=== PATIENT | female | born 1980 | race Caucasian/White ===

== ENCOUNTER 2017-09-08 13:50 | Emergency (ER) | payer OTHER ==
[~2017-09-08] VITALS: Ht 177.8 cm; Wt 61.5 kg
[~2017-09-08 13:50] MED LIST: ACET325T11 PO; ASPI325T PO; ENOX40P SQ; LABE100T2 PO; PREN0.01 PO
[2017-09-08 13:58] VITALS: BP 162/97; PULSE 74; RESP 16; TEMP 98.2; O2SAT 100
[2017-09-08] MEDS ORDERED: SODIUM CHLORIDE 0.9% FLUSH 10 ML FLUSH IVF PRN (14:00)
[2017-09-08 14:05] VITALS: O2SAT 98
--- NOTE | 2017-09-08 14:06 | PD ---
HPI Chief Complaint: syncope Time Seen by Provider: 13:54 Travel History International Travel<30 days: No Contact w/Intl Traveler<30days: No History of Present Illness HPI 37 y/o female presents with a witnessed syncopal episode today at work. Earlier this morning her blood pressure which she normally checks was elevated with a systolic in the 200s. She took her carvedilol this morning like she usually does and shortly after this is when she had the event. She states before the event she felt like her pressure was high and actually now feels better. She denies any current complaints at this time. She states she's been having a lot of issues getting her blood pressure under appropriate control. She states that that is why she checks her pressure to figure out what medications will work with her. She states in the past Norvasc and hydralazine made her feel really bad and one of them she had a syncopal event on. She states no modifying factors. PFSH Past Medical History Arthritis: Yes (HX OF FLOYD) Autoimmune Disease: Yes (LUPUS) Blood Disorders: Yes (HX OF ITP) Heart Rhythm Problems: No Cancer: No Cardiovascular Problems: Yes High Cholesterol: No Chest Pain: Yes Congestive Heart Failure: No Cerebrovascular Accident: Yes (TIA IN 2009) Endocrine: No Genitourinary: Yes (DECREASED KIDNEY FUNCTION) Hypertension: Yes Immune Disorder: Yes (WEAK IMMUNITY DEFENSE) Musculoskeletal: Yes Neurologic: No Psychiatric: No Reproductive: No Respiratory: No Myocardial Infarction: No Past Surgical History AICD: No Arteriovenous Shunt: No Ear Surgery: No Endocrine Surgery: No Eye Surgery: No Genitourinary Surgery: No Gynecologic Surgery: No Insulin Pump: No Joint Replacement: No Oral Surgery: No Pacemaker: No Social History Alcohol Use: No (NONE) Tobacco Use: No Substance Use: No Allergies-Medications (Allergen,Severity, Reaction): Coded Allergies: cephalexin (Unverified Allergy, Severe, 05/05/17) codeine (Unverified Allergy, Severe, 05/05/17) hydralazine (Unverified Allergy, Severe, 05/05/17) Reported Meds & Prescriptions Reported Meds & Active Scripts Active Reported Tylenol 325 Mg Tab (Acetaminophen) 325 Mg Tab 650 Mg PO Q4 PRN Vit ( Plus) (Prenat Multivit/Electromechanical Equipment Tester/Iron/Folic Ac) Tab 1 Tab PO DAILY Lovenox (Enoxaparin Sodium) 40 Mg/0.4 Ml Inj 40 Mg SQ DAILY UNGRADUATED PREFILLED SYRINGE Aspirin 325 Mg Tab (Aspirin) 325 Mg Tab 325 Mg PO DAILY Trandate (Labetalol HCl) 100 Mg Tab 100 Mg PO DAILY Review of Systems Except as stated in HPI: all other systems reviewed are Neg Physical Exam Narrative GENERAL: Well-nourished, well-developed patient. SKIN: Warm and dry. HEAD: Normocephalic and atraumatic. EYES: No injection or drainage. ENT: No nasal drainage noted. NECK: Supple, trachea midline. CARDIOVASCULAR: Regular rate and rhythm RESPIRATORY: Breath sounds equal bilaterally. No accessory muscle use. GASTROINTESTINAL: Abdomen soft, non-tender, nondistended. EXTREMITIES: No edema. NEUROLOGICAL: Awake and alert. Motor and sensory grossly within normal limits. Normal speech. Equal grasp bilaterally, 5 out of 5 in all 4 extremities Data Data Last Documented VS Vital Signs Date Time Temp Pulse Resp B/P (MAP) Pulse Ox O2 Delivery O2 Flow Rate FiO2 09/08/17 15:36 72 16 148/93 (111) 100 Room Air 09/08/17 13:58 98.2 Orders Orders Electrocardiogram (09/08/17 13:54) Ed Urine Pregnancytest Poc (09/08/17 13:54) Complete Blood Count With Diff (09/08/17 13:54) Comprehensive Metabolic Panel (09/08/17 13:54) Ckmb (Isoenzyme) Profile (09/08/17 13:54) Troponin I (09/08/17 13:54) Act Partial Throm Time (Ptt) (09/08/17 13:54) Prothrombin Time / Inr (Pt) (09/08/17 13:54) Urinalysis - C+S If Indicated (09/08/17 13:54) Chest, Single Ap (09/08/17 13:54) Ecg Monitoring (09/08/17 13:54) Iv Access Insert/Monitor (09/08/17 13:54) Oximetry (09/08/17 13:54) Sodium Chloride 0.9% Flush (Ns Flush) (09/08/17 14:00) Ed Discharge Order (09/08/17 16:23) Labs Laboratory Tests Test 09/08/17 14:15 09/08/17 15:15 Prothrombin Time 12.0 SEC Prothromb Time International Ratio 1.2 RATIO Activated Partial Thromboplast Time 36.5 SEC Urine Collection Type CLEAN CATCH Urine Color STRAW Urine Turbidity CLEAR Urine pH 6.0 Urine Specific [place] 1.004 Urine Protein NEG mg/dL Urine Glucose (UA) NEG mg/dL Urine Ketones NEG mg/dL Urine Occult Blood NEG Urine Nitrite NEG Urine Bilirubin NEG Urine Leukocyte Esterase NEG Urine RBC 0-3 /hpf Urine Squamous Epithelial Cells 0-5 /hpf Microscopic Urinalysis Comment CULT NOT INDICATED Urine Collection Time 14:15 Blood Urea Nitrogen 18 MG/DL Creatinine 1.30 MG/DL Random Glucose 75 MG/DL Total Protein 7.3 GM/DL Albumin 3.5 GM/DL Calcium Level 8.1 MG/DL Alkaline Phosphatase 42 U/L Aspartate Amino Transf (AST/SGOT) 22 U/L Alanine Aminotransferase (ALT/SGPT) 21 U/L Total Bilirubin 1.0 MG/DL Sodium Level 136 MEQ/L Potassium Level 4.2 MEQ/L Chloride Level 104 MEQ/L Carbon Dioxide Level 25.0 MEQ/L Anion Gap 7 MEQ/L Estimat Glomerular Filtration Rate 47 ML/MIN Total Creatine Kinase 81 U/L Troponin I LESS THAN 0.02 NG/ML White Blood Count 3.6 TH/MM3 Red Blood Count 4.50 MIL/MM3 Hemoglobin 12.5 GM/DL Hematocrit 39.6 % Mean Corpuscular Volume 88.1 FL Mean Corpuscular Hemoglobin 27.9 PG Mean Corpuscular Hemoglobin Concent 31.6 % Red Cell Distribution Width 12.6 % Platelet Count 153 TH/MM3 Mean Platelet Volume 9.3 FL Neutrophils (%) (Auto) 70.7 % Lymphocytes (%) (Auto) 21.0 % Monocytes (%) (Auto) 6.5 % Eosinophils (%) (Auto) 0.4 % Basophils (%) (Auto) 1.4 % Neutrophils # (Auto) 2.7 TH/MM3 Lymphocytes # (Auto) 0.7 TH/MM3 Monocytes # (Auto) 0.2 TH/MM3 Eosinophils # (Auto) 0.0 TH/MM3 Basophils # (Auto) 0.0 TH/MM3 CBC Comment DIFF FINAL Differential Comment MDM Medical Decision Making Medical Screen Exam Complete: Yes Emergency Medical Condition: Yes Medical Record Reviewed: Yes ([facility] confirmed) Interpretation(s) EKG shows NSR, no ST elevation or depression, and no arrhythmias. No significant T-wave inversions. CBC & BMP Diagram 09/08/17 14:15 Total Protein 7.3, Albumin 3.5, Calcium Level 8.1 L, Alkaline Phosphatase 42 L, Aspartate Amino Transf (AST/SGOT) 22, Alanine Aminotransferase (ALT/SGPT) 21, Total Bilirubin 1.0 09/08/17 15:15 Last 24 hours Impressions Chest X-Ray 09/08/17 1354 Signed Impressions: Service Date/Time: Friday, September 08, 2017 14:13 - CONCLUSION: Normal examination. Gato Calderon MD Differential Diagnosis Anemia, vasovagal, atypical cardiac Narrative Course Will check blood work, chest x-ray, EKG and monitor ED workup shows mild increase in baseline creatinine, patient offered observation but wanting to go home, will discuss with her primary Patient denies any new complaints, all questions answered. Patient knows that follow up is incumbent on them and to return to the emergency room immediately if new or worsening symptoms develop. Patient given strict return precautions, vitals reviewed and are normal, agrees to further workup as an outpatient. Physician Communication Physician Communication dr zhang states patient can go home, to take an extra half dose of her carvedilol tonight and call for follow up tommorrow, take her Plaquenil Diagnosis Primary Impression: Syncope Qualified Codes: R55 - Syncope and collapse Patient Instructions: General Instructions Additional Instructions: take one half of your carvedilol tonight if her blood pressure remains elevated when you go home and check it, call Dr. Zhang for follow-up tomorrow, keep blood pressure log, return as needed, take your Plaquenil Med/Other Pt SpecificInfo: Existing Med Changed Disposition: DISCHARGE HOME Condition: Stable Theresa Palafox MD Sep 08, 2017 14:06
[2017-09-08 14:22] LABS: BILIRUBIN, URINE NEG (NEG); BLOOD, URINE NEG (NEG); GLUCOSE,URINE NEG (NEG); KETONE, URINE NEG (NEG); NITRITE,URINE NEG (NEG); URINE LEUKOCYTE ESTERASE NEG (NEG)
[2017-09-08 14:34] LABS: CHLORIDE 104 MEQ/L (98-107); SODIUM (NA) 136 MEQ/L (136-145)
[2017-09-08 14:36] LABS: INTERNATIONAL NORMALIZED RATIO 1.2 RATIO
[2017-09-08 14:37] LABS: ALBUMIN 3.5 GM/DL (3.4-5.0); BLOOD UREA NITROGEN 18 MG/DL (7-18); CALCIUM 8.1 MG/DL (8.5-10.1); GLUCOSE,RANDOM 75 MG/DL (74-106)
[2017-09-08 14:39] LABS: RBC, URINE 0-3 /hpf (0-3); SQUAMOUS EPITHELIAL CELL URINE 0-5 /hpf (0-5); URINE COLOR STRAW (YELLW/STRAW)
[2017-09-08 14:40] LABS: ALT (GPT) 21 U/L (10-53); AST (GOT) 22 U/L (15-37); GLOMERULAR FILTRATION RATE 47 ML/MIN (>89)
--- NOTE | 2017-09-08 14:40 | RADRPT ---
EXAM DATE/TIME: 09/08/2017 14:13 [facility] COMPARISON: No previous studies available for comparison. INDICATIONS : Syncopal episode today. MEDICAL HISTORY : Hypertension. SURGICAL HISTORY : None. ENCOUNTER: Initial ACUITY: 1 day PAIN SCORE: 0/10 LOCATION: Bilateral chest FINDINGS: A single view of the chest demonstrates the lungs to be symmetrically aerated without evidence of mas s, infiltrate or effusion. The cardiomediastinal contours are unremarkable. Osseous structures are intact. CONCLUSION: Normal examination. Gato Calderon MD on September 08, 2017 at 14:37 Board Certified Radiologist. This report was verified electronically.
[2017-09-08 14:42] LABS: TOTAL PROTEIN 7.3 GM/DL (6.4-8.2)
[2017-09-08 14:43] LABS: ALKALINE PHOSPHATASE 42 U/L (45-117)
[2017-09-08 14:45] LABS: TROPONIN I LESS THAN 0.02 NG/ML (0.02-0.05)
[2017-09-08 15:22] LABS: AUTOMATED NEUTROPHIL # 2.7 TH/MM3 (1.8-7.7); BASOPHIL % 1.4 % (0.0-2.0); EOSINOPHIL % 0.4 % (0.0-4.0); HEMATOCRIT 39.6 % (35.0-46.0); HEMOGLOBIN 12.5 GM/DL (11.6-15.3); LYMPHOCYTE # 0.7 TH/MM3 (1.0-4.8); MEAN CELL VOLUME 88.1 FL (80.0-100.0); MEAN CORPUSCULAR HEMOGLOBIN 27.9 PG (27.0-34.0); MEAN CORPUSCULAR HGB CONC 31.6 % (32.0-36.0); MEAN PLATELET VOLUME 9.3 FL (7.0-11.0); MONO % 6.5 % (0.0-8.0); MONOCYTE # 0.2 TH/MM3 (0-0.9); NEUT % 70.7 % (16.0-70.0); PLATELET COUNT 153 TH/MM3 (150-450); RED CELL DISTRIBUTION WIDTH 12.6 % (11.6-17.2); WHITE BLOOD COUNT 3.6 TH/MM3 (4.0-11.0)
[2017-09-08 15:36] VITALS: BP 148/93; PULSE 72; RESP 16; O2SAT 100
--- NOTE | 2017-09-08 16:18 | EKG ---
Date Performed: 09/08/2017 Time Performed: 14:05:21 PTAGE: 37 years EKG: Sinus rhythm NORMAL ECG Compared to prior electrocardiogram, rate has decreased and Nonspecific T wave changes no longer present. PREVIOUS TRACING : 09/02/2012 18.28 DOCTOR: Jose Holland Interpretating Date/Time 09/08/2017 16:19:54
== END 2017-09-08 16:45 | disposition home or self-care (01) ==
LOC: PHED 13:50
DX: R55 Syncope and collapse (principal); I10 Essential (primary) hypertension; M32.9 Systemic lupus erythematosus, unspecified; Z86.73 Personal history of transient ischemic attack (TIA), and cerebral infarction without residual deficits
CPT/HCPCS: 71010; 80053; 81001; 82550; 84484; 84703; 85025; 85610; 85730; 93005

== ENCOUNTER 2018-11-06 15:02 | Inpatient (IN) ==
[2018-11-06] MEDS ORDERED: Sod Chloride 0.9% Inj 1,000 ML IV.CONT SCH (15:15)
--- NOTE | 2018-11-06 15:31 | CT ---
EXAM DATE: 11/06/2018 3:26 PM EST AGE/SEX: 38 years / Female INDICATIONS: Stroke alert, aphasia. CLINICAL DATA: This is the patient's initial encounter. Patient reports that signs and symptoms have been present for 1 day and indicates a pain score of Nonresponsive. MEDICAL/SURGICAL HISTORY: Non-responsive. Non-responsive. RADIATION DOSE: 34.16 CTDI (mGy) COMPARISON: [facility], CT BRAIN W/O CONTRAST, 08/27/2012. . TECHNIQUE: CT of the head without contrast. Using automated exposure control and adjustment of the mA and/or kV according to patient size, radiation dose was kept as low as reasonably achievable to ob tain optimal diagnostic quality images. DICOM format image data is available electronically for revi ew and comparison. FINDINGS: Cerebrum: The ventricles are normal for age. No evidence of midline shift, mass lesion, hemorrhage or acute infarction. No extraaxial fluid collections are seen. Posterior Fossa: The cerebellum and brainstem are intact. The 4th ventricle is midline. The cerebe llopontine angle is unremarkable. Extracranial: The visualized portion of the orbits is intact. Skull: The calvaria is intact. No evidence of skull fracture. CONCLUSION: 1. No acute intracranial abnormality Report was called by Dickson to [facility]. Electronically signed by: Evin Forman MD Board Certified Radiologist 11/06/2018 3:30 PM EST
--- NOTE | 2018-11-06 15:48 | CT ---
EXAM DATE: 11/06/2018 3:42 PM EST AGE/SEX: 38 years / Female INDICATIONS: Stroke alert, aphasia. CLINICAL DATA: This is the patient's initial encounter. Patient reports that signs and symptoms have been present for 1 day and indicates a pain score of Nonresponsive. MEDICAL/SURGICAL HISTORY: Non-responsive. Non-responsive. RADIATION DOSE: 27.55 CTDI (mGy) ; Combined studies COMPARISON: [facility], CTA STROKE ALERT NECK W CONTRAST W 3D, 11/06/2018. . TECHNIQUE: Volumetric scanning was performed using a multi-row detector CT scanner during bolus infu chad of 100 ml Visipaque 320 (iodixanol) nonionic water-soluble contrast as a cumulative dose for mu ltiple exams. The data was post processed with a variety of visualization algorithms including full volume maximum intensity projection, multi-planar sliding thin slab reformation, curved planar refor mation, and surface rendering techniques. Using automated exposure control and adjustment of the mA and/or kV according to patient size, radiation dose was kept as low as reasonably achievable to obtai n optimal diagnostic quality images. DICOM format image data is available electronically for review and comparison. FINDINGS: There is excellent visualization of the major intracranial arteries out to the second-order branch ve ssels. There is no evidence for aneurysm, vessel truncation or stenosis, and no evidence for vascula r malformation. Dominant left vertebral artery. Small anterior communicating artery. Posterior commun icating arteries are not seen. CONCLUSION: 1. No large vessel stenosis or aneurysm. Report was called by Dickson to [facility]. Electronically signed by: Evin Forman MD Board Certified Radiologist 11/06/2018 3:47 PM EST
--- NOTE | 2018-11-06 15:49 | CT ---
EXAM DATE: 11/06/2018 3:43 PM EST AGE/SEX: 38 years / Female INDICATIONS: Stroke alert, aphasia. CLINICAL DATA: This is the patient's initial encounter. Patient reports that signs and symptoms have been present for 1 day and indicates a pain score of Nonresponsive. MEDICAL/SURGICAL HISTORY: Non-responsive. Non-responsive. RADIATION DOSE: 27.55 CTDI (mGy) ; Combined studies COMPARISON: No prior exams available for comparison. TECHNIQUE: Volumetric scanning was performed using a multirow detector CT scanner during bolus infus ion of 100 ml Visipaque 320 (iodixanol) nonionic water-soluble contrast as a cumulative dose for mul tiple exams. The data was postprocessed with a variety of visualization algorithms including full-v olume maximum intensity projection, multiplanar sliding thin-slab reformation, curved-planar reformat ion, and surface-rendering techniques. Using automated exposure control and adjustment of the mA and /or kV according to patient size, radiation dose was kept as low as reasonably achievable to obtain o ptimal diagnostic quality images. DICOM format image data is available electronically for review and comparison. Percent stenosis is calculated using the diameter of the stenotic region over the diameter of the nor mal distal internal carotid artery. FINDINGS: Aortic Arch: There is a three-vessel origin of the great vessels from the aorta. No evidence of ost ial narrowing Right Carotid: The common carotid artery is intact. The carotid bulb has a normal configuration wit hout ulceration or narrowing. The internal carotid artery lumen is smooth without stenosis. The ext ernal carotid artery is intact. Left Carotid: The common carotid artery is intact. The carotid bulb has a normal configuration with out ulceration or narrowing. The internal carotid artery lumen is smooth without stenosis. The exte rnal carotid artery is intact. Vertebrals: The vertebral arteries have a symmetric diameter. No stenotic lesions are seen. CONCLUSION: 1. Negative CTA Carotid. Report was called by Dickson to [facility]. Electronically signed by: Evin Forman MD Board Certified Radiologist 11/06/2018 3:48 PM EST
[2018-11-06 15:50] LABS: Baso % (Auto) 0.4 % (0.0-2.0); Eos % (Auto) 0.1 % (0.0-4.0); Hematocrit 42.9 % (35.0-46.0); Hemoglobin 14.4 gm/dL (11.6-15.3); Lymph # (Auto) 0.7 th/mm3 (1.0-4.8); Lymph % (Auto) 9.8 % (9.0-44.0); Mean Corpuscular HGB Conc 33.6 % (32.0-36.0); Mean Corpuscular Hemoglobin 29.3 pg (27.0-34.0); Mean Corpuscular Volume 87.2 fL (80.0-100.0); Mean Platelet Volume 8.9 fL (7.0-11.0); Mono # (Auto) 0.3 th/mm3 (0.0-0.9); Mono % (Auto) 3.8 % (0.0-8.0); Neut # (Auto) 5.8 th/mm3 (1.8-7.7); Neut % (Auto) 85.9 % (16.0-70.0); Platelet Count 244 th/mm3 (150-450); Red Blood Count 4.92 mil/mm3 (4.00-5.30); Red Cell Distribution Width 13.3 % (11.6-17.2); White Blood Count 6.7 th/mm3 (4.0-11.0)
[2018-11-06] MEDS ORDERED: SODIUM CHLOR 0.9% IV.SIG ONE (15:57)
[2018-11-06] MEDS ORDERED: ACYCLOVIR IV.SIG ONE (15:57)
[2018-11-06] MEDS ORDERED: Vancomycin Inj 1,000 MG in Sodium Chlor 0.9% Inj 250 ML IV.SIG STA (15:57)
[2018-11-06 16:00] LABS: Activated Partial Thrombo Time 42.9 sec (23.4-31.7); INR 1.2 Ratio; Prothrombin Time 11.9 sec (9.8-11.6)
[2018-11-06 16:09] LABS: Creatine Kinase 36 U/L (26-192)
[2018-11-06] MEDS ORDERED: Sod Chloride 0.9% Inj 1,000 ML IV.SIG SCH (16:15)
--- NOTE | 2018-11-06 16:45 | MR ---
EXAM DATE: 11/06/2018 4:38 PM EST AGE/SEX: 38 years / Female INDICATIONS: Aphasia. CLINICAL DATA: This is the patient's initial encounter. Patient reports that signs and symptoms have been present for 1 day and indicates a pain score of 0/10. MEDICAL/SURGICAL HISTORY: Lupus. None. COMPARISON: [facility], MRI BRAIN W & W/O CONTRAST, 08/28/2012. . TECHNIQUE: Multiplanar, multisequence examination of the brain was performed without contrast. FINDINGS: Cerebrum: The ventricles are normal for age. No evidence of midline shift, mass lesion, hemorrhage or acute infarction. No extraaxial fluid collections are seen. The pituitary gland and suprasellar cistern are normal in configuration. White Matter: No significant signal abnormalities are seen in the white matter. Posterior Fossa: The cerebellum and brainstem are intact. The 4th ventricle is midline. The cerebel lopontine angle is unremarkable. The cerebellar tonsils are normal in position. Diffusion Imaging: No focal areas of restricted diffusion are seen. No evidence of acute infarction . Extracranial: The visualized portions of the orbits and paranasal sinuses are unremarkable. CONCLUSION: 1. Unremarkable MRI of the brain. 2. No acute infarction. Electronically signed by: Evin Forman MD Board Certified Radiologist 11/06/2018 4:43 PM EST
[2018-11-06 16:46] LABS: Bilirubin,Urine Negative (Negative); Clarity,Urine Clear (Clear); Color,Urine Yellow (Yellw/Straw); Glucose,Urine (UA) Negative (Negative); Leukocyte Esterase,Urine Negative (Negative); Mucus,Urine Few /lpf (Occasional); Nitrite,Urine Negative (Negative); Specific Gravity,Urine 1.013 (1.002-1.035)
[2018-11-06 16:53] LABS: Amphetamine Screen,Urine Neg (Neg); Barbiturate Screen,Urine Neg (Neg); Cannabinoid Screen,Urine Neg (Neg); Cocaine Screen,Urine Neg (Neg); Opiate Screen,Urine Neg (Neg)
[2018-11-06] MEDS ORDERED: Vancomycin Inj 1,000 MG in Sodium Chlor 0.9% Inj 250 ML IV.SIG ONE (17:00)
--- NOTE | 2018-11-06 17:38 | ED ---
HPI General Chief complaint: Stroke Alert Stated complaint: Stroke Alert Time Seen by Provider: 11/06/18 15:07 Source: family Mode of arrival: EMS Limitations: no limitations History of Present Illness HPI narrative: This is a 38-year-old female who presents to the emergency department with altered mental status. She reportedly had been not feeling well this morning and had a fever of 103. Her neighbor was tending to her and picked up her antiviral medication and was giving her Tylenol. Her neighbor started to care for her around noon and at 130 she noticed a distinct change in her mental status. The patient became more somnolent, was not responding and was having difficulty speaking, constant, severe. Her neighbor called 911. Here in the emergency department the patient is unable to provide any history. She reportedly has a history of lupus and a stroke. Related Data Home Medications Medication Instructions Recorded Confirmed Unable to Obtain Home Meds 11/06/18 11/06/18 Allergies Allergy/AdvReac Type Severity Reaction Status Date / Time cephalexin Allergy Severe Hives Verified 11/06/18 15:19 codeine Allergy Severe Hives Verified 11/06/18 15:19 hydralazine Allergy Severe Hives Verified 11/06/18 15:19 ampicillin Allergy Rash Verified 11/06/18 16:27 Review of Systems ROS Unobtainable ROS Unobtainable: unobtainable due to mental condition [facility] Medical History Medical History Hypertension (Acute) Lupus (Acute) Surgical history unknown (Acute) TIA (transient ischemic attack) (Acute) Social History Social History Substance History: Unable to Obtain Smoking Status: Unknown if ever smoked How Often Do You Have a Drink Containing Alcohol: Unable to Obtain Recent Travel in [facility] within the Last 8 Weeks: No Recent Out of Country Travel within the Last 8 Weeks: No Immunization History Tetanus Immunization: Unable to Assess Exam Narrative Exam Narrative: GENERAL: Unwell appearing SKIN: Dry with skin tenting HEAD: Atraumatic. Normocephalic. EYES: Pupils equal and round. No injection or drainage. ENT: Dry mucous membranes NECK: Trachea midline. CARDIOVASCULAR: Regular rate and rhythm. No murmur appreciated. RESPIRATORY: Clear to auscultation. Breath sounds equal bilaterally. GASTROINTESTINAL: Abdomen soft, non-tender, nondistended. MUSCULOSKELETAL: No obvious deformities. NEUROLOGICAL: Somnolent, severe dysarthria and expressive aphasia, not following commands, exhibiting strength in all 4 extremities, no facial palsy Course Initial Documented Vital Signs Temperature 98.5 F 11/06/18 15:04 Pulse Rate 79 11/06/18 15:04 Respiratory Rate 18 11/06/18 15:04 Blood Pressure 159/104 H 11/06/18 15:04 Pulse Oximetry 99 11/06/18 15:04 Last Documented Vital Signs Temperature 98.5 F 11/06/18 15:04 Pulse Rate 96 H 11/06/18 18:00 Respiratory Rate 20 11/06/18 18:00 Blood Pressure 144/98 H 11/06/18 18:00 Pulse Oximetry 100 11/06/18 18:00 Critical Care Time Critical Care Time: Yes Total Critical Care Time: 60 Attestation: Aggregate critical care time was 60 minutes. Time to perform other separately billable procedures was not included in the critical care time. My time did not include minutes spent treating any other patients simultaneously or on activities that did not directly contribute to the patient's treatment. The services I provided to this patient were to treat and/or prevent clinically significant deterioration that could result in: disability, I provided critical care services requiring my management, as noted below: Chart data review, documentation time, medication orders and management, vital sign assessments/reviewing monitor data, ordering and reviewing lab tests, ordering and interpreting/reviewing x-rays and diagnostic studies, care of the patient and discussion of the patient with the admitting physicians. NIH Stroke Scale NIH Stroke Scale Level of Consciousness: 2-Obtunded Orientation Questions: 2-Neither task correct Responds to Commands: 2-Neither task correct Gaze Eye Movement: 0-Horizontal movement WNL Visual Penn: 0-No visual field defect Facial Movement: 0-Normal Motor Functions Arm LEFT: 2-Falls before 10 seconds Motor Functions Arm RIGHT: 2-Falls before 10 seconds Motor Functions Leg LEFT: 1-Drift before 5 seconds Motor Functions Leg RIGHT: 3-No effort against gravity Limb Ataxia: 0-No ataxia Sensory Loss: 0-No sensory loss Best Language: 2-Severe aphasia Articulation: 2-Severe dysarthria Extinction or Inattention Sensory: 0-Absent Total: 18 Quality Measure Queries Stroke Last date observed well: 11/06/18 Last time observed well: 14:[address] [facility] Narrative Medical decision making narrative: This is a 38-year-old female who has a history of lupus who presents to the emergency department with acute altered mental status. She reportedly had a fever of 103 this morning and 1 of her children had a confirmed case of influenza. She was initially called as a stroke alert given the acute change in mental status. In talking with her neighbor the patient has not been normal all day because she has been ill. Her symptoms are nonfocal with her predominant symptom being dysarthria and aphasia. She does have some bizarre movements which could be seizure activity. She improved significantly during her stay in the emergency department. Initially she had a CT of the head and a CTA which were reassuring. She had an MRI which was reassuring with no evidence of stroke. Labs are reassuring with no leukocytosis. Patient has not had a fever here. Patient was initially covered with empiric vancomycin and acyclovir however when her labs are reassuring and she remained afebrile, Dr. Ventura and I agreed to discontinue antibiotics. Plan for admission for neurology consultation and EEG. Continued differential includes viral syndrome vs encephalitis vs seizure vs lupus cerebritis Medical Screen Exam Complete: Yes Emergency Medical Condition: Yes Lab Data Lab results reviewed: Yes I reviewed the patient's lab results. Result diagrams: 11/06/18 15:07 11/06/18 17:05 Lab Results 11/06/18 11/06/18 11/06/18 Range/Units 15:07 15:07 15:07 WBC 6.7 (4.0-11.0) th/mm3 RBC 4.92 (4.00-5.30) mil/mm3 Hgb 14.4 (11.6-15.3) gm/dL POC Hgb (Calc) 14.6 (11.6-15.3) g/dL Hct 42.9 (35.0-46.0) % POC Hct 43.0 (35-46.0) % MCV 87.2 (80.0-100.0) fL MCH 29.3 (27.0-34.0) pg MCHC 33.6 (32.0-36.0) % RDW 13.3 (11.6-17.2) % Plt Count 244 (150-450) th/mm3 MPV 8.9 (7.0-11.0) fL Neut % (Auto) 85.9 H (16.0-70.0) % Lymph % (Auto) 9.8 (9.0-44.0) % Baker % (Auto) 3.8 (0.0-8.0) % Eos % (Auto) 0.1 (0.0-4.0) % Baso % (Auto) 0.4 (0.0-2.0) % Neut # (Auto) 5.8 (1.8-7.7) th/mm3 Lymph # (Auto) 0.7 L (1.0-4.8) th/mm3 Baker # (Auto) 0.3 (0.0-0.9) th/mm3 Eos # (Auto) 0.0 (0.0-0.4) th/mm3 Baso # (Auto) 0.0 (0.0-0.2) th/mm3 WBC Differential . Differential Comment Auto diff final PT 11.9 H (9.8-11.6) sec INR 1.2 Ratio APTT 42.9 H (23.4-31.7) sec Fibrinogen 236 (227-377) mg/dL POC Sodium 137 (137-144) mmol/L Sodium (136-145) meq/L POC Potassium 4.3 (3.6-5.0) mmol/L Potassium (3.5-5.1) meq/L POC Chloride 104 (102-111) mmol/L Chloride (98-107) meq/L Carbon Dioxide (21.0-32.0) meq/L Anion Gap (5-15) meq/L POC BUN 25 H (5-21) mg/dL BUN (7-18) mg/dL Creatinine (0.50-1.00) mg/dL POC Creatinine 1.5 H (0.6-1.3) mg/dL Estimated GFR (>89) mL/min POC Glucose 65 L (68-110) mg/dL Random Glucose (74-106) mg/dL Lactic Acid (0.4-2.0) mmol/L Calcium (8.5-10.1) mg/dL Total Bilirubin (0.2-1.0) mg/dL AST (15-37) U/L ALT (10-53) U/L Alkaline Phosphatase (45-117) U/L Total Creatine Kinase 36 (26-192) U/L Troponin I Less than 0.02 L (0.02-0.05) ng/mL Total Protein (6.4-8.2) g/dL Albumin (3.4-5.0) g/dL Urine Color (Yellw/Straw) Urine Clarity (Clear) Urine pH (5.0-8.5) Ur Specific Spencer (1.002-1.035) Urine Protein (Neg-Trace) mg/dL Urine Glucose (UA) (Negative) mg/dL Urine Ketones (Negative) mg/dL Urine Occult Blood (Negative) Urine Nitrate (Negative) Urine Bilirubin (Negative) Urine Urobilinogen (Less than 2) mg/dL Ur Leukocyte Esterase (Negative) Urine WBC (0-5) /hpf Urine Mucus (Occasional) /lpf Micro UA Comment Ur Microscopic Review Urine Culture Comments Urine Opiates Screen (Neg) Ur Barbiturates Screen (Neg) Ur Amphetamines Screen (Neg) U Benzodiazepines Scrn (Neg) Urine Cocaine Screen (Neg) U Cannabinoids Screen (Neg) Blood Type Antibody Screen 11/06/18 11/06/18 11/06/18 Range/Units 15:07 15:07 16:15 WBC (4.0-11.0) th/mm3 RBC (4.00-5.30) mil/mm3 Hgb (11.6-15.3) gm/dL POC Hgb (Calc) (11.6-15.3) g/dL Hct (35.0-46.0) % POC Hct (35-46.0) % MCV (80.0-100.0) fL MCH (27.0-34.0) pg MCHC (32.0-36.0) % RDW (11.6-17.2) % Plt Count (150-450) th/mm3 MPV (7.0-11.0) fL Neut % (Auto) (16.0-70.0) % Lymph % (Auto) (9.0-44.0) % Baker % (Auto) (0.0-8.0) % Eos % (Auto) (0.0-4.0) % Baso % (Auto) (0.0-2.0) % Neut # (Auto) (1.8-7.7) th/mm3 Lymph # (Auto) (1.0-4.8) th/mm3 Baker # (Auto) (0.0-0.9) th/mm3 Eos # (Auto) (0.0-0.4) th/mm3 Baso # (Auto) (0.0-0.2) th/mm3 WBC Differential Differential Comment PT (9.8-11.6) sec INR Ratio APTT (23.4-31.7) sec Fibrinogen (227-377) mg/dL POC Sodium (137-144) mmol/L Sodium (136-145) meq/L POC Potassium (3.6-5.0) mmol/L Potassium (3.5-5.1) meq/L POC Chloride (102-111) mmol/L Chloride (98-107) meq/L Carbon Dioxide (21.0-32.0) meq/L Anion Gap (5-15) meq/L POC BUN (5-21) mg/dL BUN (7-18) mg/dL Creatinine (0.50-1.00) mg/dL POC Creatinine (0.6-1.3) mg/dL Estimated GFR (>89) mL/min POC Glucose 71 (68-110) mg/dL Random Glucose (74-106) mg/dL Lactic Acid (0.4-2.0) mmol/L Calcium (8.5-10.1) mg/dL Total Bilirubin (0.2-1.0) mg/dL AST (15-37) U/L ALT (10-53) U/L Alkaline Phosphatase (45-117) U/L Total Creatine Kinase (26-192) U/L Troponin I (0.02-0.05) ng/mL Total Protein (6.4-8.2) g/dL Albumin (3.4-5.0) g/dL Urine Color (Yellw/Straw) Urine Clarity (Clear) Urine pH (5.0-8.5) Ur Specific Spencer (1.002-1.035) Urine Protein (Neg-Trace) mg/dL Urine Glucose (UA) (Negative) mg/dL Urine Ketones (Negative) mg/dL Urine Occult Blood (Negative) Urine Nitrate (Negative) Urine Bilirubin (Negative) Urine Urobilinogen (Less than 2) mg/dL Ur Leukocyte Esterase (Negative) Urine WBC (0-5) /hpf Urine Mucus (Occasional) /lpf Micro UA Comment Ur Microscopic Review Urine Culture Comments Urine Opiates Screen Neg (Neg) Ur Barbiturates Screen Neg (Neg) Ur Amphetamines Screen Neg (Neg) U Benzodiazepines Scrn Neg (Neg) Urine Cocaine Screen Neg (Neg) U Cannabinoids Screen Neg (Neg) Blood Type A Negative Antibody Screen Negative 11/06/18 11/06/18 11/06/18 Range/Units 16:15 16:25 17:05 WBC (4.0-11.0) th/mm3 RBC (4.00-5.30) mil/mm3 Hgb (11.6-15.3) gm/dL POC Hgb (Calc) (11.6-15.3) g/dL Hct (35.0-46.0) % POC Hct (35-46.0) % MCV (80.0-100.0) fL MCH (27.0-34.0) pg MCHC (32.0-36.0) % RDW (11.6-17.2) % Plt Count (150-450) th/mm3 MPV (7.0-11.0) fL Neut % (Auto) (16.0-70.0) % Lymph % (Auto) (9.0-44.0) % Baker % (Auto) (0.0-8.0) % Eos % (Auto) (0.0-4.0) % Baso % (Auto) (0.0-2.0) % Neut # (Auto) (1.8-7.7) th/mm3 Lymph # (Auto) (1.0-4.8) th/mm3 Baker # (Auto) (0.0-0.9) th/mm3 Eos # (Auto) (0.0-0.4) th/mm3 Baso # (Auto) (0.0-0.2) th/mm3 WBC Differential Differential Comment PT (9.8-11.6) sec INR Ratio APTT (23.4-31.7) sec Fibrinogen (227-377) mg/dL POC Sodium (137-144) mmol/L Sodium 137 (136-145) meq/L POC Potassium (3.6-5.0) mmol/L Potassium 4.4 (3.5-5.1) meq/L POC Chloride (102-111) mmol/L Chloride 107 (98-107) meq/L Carbon Dioxide 17.9 L (21.0-32.0) meq/L Anion Gap 12 (5-15) meq/L POC BUN (5-21) mg/dL BUN 25 H (7-18) mg/dL Creatinine 1.33 H (0.50-1.00) mg/dL POC Creatinine (0.6-1.3) mg/dL Estimated GFR 45 L (>89) mL/min POC Glucose (68-110) mg/dL Random Glucose 54 L (74-106) mg/dL Lactic Acid 1.1 (0.4-2.0) mmol/L Calcium 7.6 L (8.5-10.1) mg/dL Total Bilirubin 1.5 H (0.2-1.0) mg/dL AST 19 (15-37) U/L ALT 15 (10-53) U/L Alkaline Phosphatase 55 (45-117) U/L Total Creatine Kinase (26-192) U/L Troponin I (0.02-0.05) ng/mL Total Protein 7.0 (6.4-8.2) g/dL Albumin 3.2 L (3.4-5.0) g/dL Urine Color Yellow (Yellw/Straw) Urine Clarity Clear (Clear) Urine pH 5.0 (5.0-8.5) Ur Specific Spencer 1.013 (1.002-1.035) Urine Protein Negative (Neg-Trace) mg/dL Urine Glucose (UA) Negative (Negative) mg/dL Urine Ketones 20 (Negative) mg/dL Urine Occult Blood Negative (Negative) Urine Nitrate Negative (Negative) Urine Bilirubin Negative (Negative) Urine Urobilinogen Less than 2 (Less than 2) mg/dL Ur Leukocyte Esterase Negative (Negative) Urine WBC Less than 1 (0-5) /hpf Urine Mucus Few H (Occasional) /lpf Micro UA Comment Cath-culture not ind Ur Microscopic Review Not Reportable Urine Culture Comments Cath-cult not ind Urine Opiates Screen (Neg) Ur Barbiturates Screen (Neg) Ur Amphetamines Screen (Neg) U Benzodiazepines Scrn (Neg) Urine Cocaine Screen (Neg) U Cannabinoids Screen (Neg) Blood Type Antibody Screen Imaging Data Radiologist's impression: Chest X-Ray 11/06/18 00:00 CONCLUSION: The lungs are clear. Head CT 11/06/18 15:07 CONCLUSION: 1. No acute intracranial abnormality Report was called by Dickson to Jeb. Head CTA 11/06/18 15:07 CONCLUSION: 1. No large vessel stenosis or aneurysm. Report was called by [place] to Audrey. Neck CTA 11/06/18 15:07 CONCLUSION: 1. Negative CTA Carotid. Report was called by T[place] to Audrey. Head MRI 11/06/18 16:07 CONCLUSION: 1. Unremarkable MRI of the brain. 2. No acute infarction. Discharge Plan Discharge Disposition Patient Disposition: 01 Discharge Home Discharge Condition Condition: Stable Discharge Order Discharge Orders: ED Use Only Admit Order (Routine); Ordered 11/06/18 Ordered By: Elizabeth Russ Discharge Details Diagnosis: Altered mental status Physicians Team ED Provider: Elizabeth Russ Primary Care Provider: UNKNOWN, Attending Provider: Guero Rodriguez Other Providers: Mango Ventura Discharge Interventions Interventions: Vital Signs Last Done: 11/06/18 18:00 Status ED Status: Admitted Patient
[2018-11-06 17:49] LABS: Alanine Aminotransferase 15 U/L (10-53); Alkaline Phosphatase 55 U/L (45-117)
[2018-11-06 17:50] LABS: Albumin 3.2 g/dL (3.4-5.0); Anion Gap 12 meq/L (5-15); Aspartate Aminotransferase 19 U/L (15-37); Blood Urea Nitrogen 25 mg/dL (7-18); Calcium 7.6 mg/dL (8.5-10.1); Carbon Dioxide 17.9 meq/L (21.0-32.0); Chloride 107 meq/L (98-107); Glomerular Filtration Rate 45 mL/min (>89); Glucose,Random 54 mg/dL (74-106); Potassium 4.4 meq/L (3.5-5.1); Sodium 137 meq/L (136-145)
[2018-11-06] MEDS ORDERED: Acetaminophen 325 MG Tablet PO PRN ×2 (17:50→19:07)
--- NOTE | 2018-11-06 17:55 | P.HPIM ---
History of Present Illness Primary Care Physician: UNKNOWN History of Present Illness: Pt is a pleasant 38 y/o F with h/o lupus, post CVA, and antiphospholipid antibody syndrome. 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 Pt reports that earlier this week her son was diagnosed with influeza A. Pt herself developed high fever the day prior to admission with cough. Pt was empirically prescribed antiviral therapy, but this was never started. Her neighbors noted a changed in her mental status on the day of admission between early AM and when they brought her prescription from the pharmacy. In the ER, pt was made a stroke alert d/t confusion and difficulty speak. Case was discussed between the ER physician and the on-call Neurologist, Dr. Ventura. Extensive neuroimaging studies were obtained including CT brain, MRI brain, CTA head, and CTA neck. There were NO acute findings. At the time of my interview and examination, pt was back to her cognitive baseline. Pt answered questions appropriately and was able to readily HODGSON with perhaps some minimal b/l LE weakness. Gait was NOT tested. Pt appeared clinically dehydrated. I spoke with the pt's by phone. He was appropriately concerned. He related that Ms. North is very driven. She will often taken on multiple, difficult, exhausting projects, and seems to have similar neurologic episodes comparable to today's approximately once a year. PMH: - HTN - Lupus, follows with Dr. 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 Diagnosis (1) Altered mental status: Medications and Allergies Allergies Allergy/AdvReac Type Severity Reaction Status Date / Time cephalexin Allergy Severe Hives Verified 11/06/18 15:19 codeine Allergy Severe Hives Verified 11/06/18 15:19 hydralazine Allergy Severe Hives Verified 11/06/18 15:19 ampicillin Allergy Rash Verified 11/06/18 16:27 Home Medications Medication Instructions Recorded Confirmed Type Unable to Obtain Home Meds 11/06/18 02 History Active Medications: Active Medications Acetaminophen (Tylenol) 650 mg PO Q4H PRN PRN Reason: Temp > 100.4 Enoxaparin Sodium (Lovenox Inj) 30 mg SQ Q24H AURELIA Sodium Chloride (Ns Inj) 1,000 mls @ 70 mls/hr IV.CONT .[id number] [facility] Last Admin: 11/06/18 15:46 Dose: 70 mls/hr Vancomycin HCl 1,000 mg/ (Sodium Chloride) 250 mls @ 250 mls/hr IV.SIG ONCE ONE Stop: 11/06/18 17:59 Last Infusion: 11/06/18 17:35 Dose: Infused Potassium Chloride/Dextrose/Sod Cl (D5w/1/2ns + Kcl 20 Meq Inj) 1,000 mls @ 100 mls/hr IV.CONT .Q10H [facility] Physical Exam Vital signs: Last Vital Signs Temp 98.5 F 11/06/18 15:04 Pulse 88 11/06/18 17:00 Resp 18 11/06/18 17:00 BP 146/90 H 11/06/18 17:00 Pulse Ox 100 11/06/18 17:00 Narrative: GENERAL: This is a well-nourished, well-developed patient, in no apparent distress. CARDIOVASCULAR: Regular rate and rhythm without murmurs, gallops, or rubs. RESPIRATORY: Clear to auscultation. Breath sounds equal bilaterally. No wheezes , rales, or rhonchi. GASTROINTESTINAL: Abdomen soft, non-tender, nondistended. Normal active bowel sounds MUSCULOSKELETAL: Extremities without clubbing, cyanosis, or edema. NEURO: Alert & Oriented x4 to person, place, time, situation. Moves all ext x4 Results Labs CBC & Chem 7: 11/07/18 06:14 11/07/18 06:14 Caprini VTE Risk Assessment Caprini VTE Risk Assessment: No/Low Risk (score <= 1) Caprini Risk Assessment Model: Point Value = 1 Point Value = 2 Point Value = 3 Point Value = 5 Age 41-60 Minor surgery BMI > 25 kg/m2 Swollen legs Varicose veins or History of unexplained or recurrent spontaneous Oral contraceptives or hormone replacement Sepsis (< 1 month) Serious lung disease, including pneumonia (< 1 month) Abnormal pulmonary function Acute myocardial infarction Congestive heart failure (< 1 month) History of inflammatory bowel disease Medical patient at bed rest Age 61-74 Arthroscopic surgery Major open surgery (> 45 min) Laparoscopic surgery (> 45 min) Malignancy Confined to bed (> 72 hours) Immobilizing plaster cast Central venous access Age >= 75 History of VTE Family history of VTE Factor V Leiden Prothrombin [id number] Lupus anticoagulant Anticardiolipin antibodies Elevated serum homocysteine Heparin-induced thrombocytopenia Other congenital or acquired thrombophilia Stroke (< 1 month) Elective arthroplasty Hip, pelvis, or leg fracture Acute spinal cord injury (< 1 month) Prophylaxis Regimen: Total Risk Factor Score Risk Level Prophylaxis Regimen 0-1 Low Early ambulation 2 Moderate Order ONE of the following: *Sequential Compression Device (SCD) *Heparin 5000 units SQ BID 3-4 Higher Order ONE of the following medications: *Heparin 5000 units SQ TID *Enoxaparin/Lovenox 40 mg SQ daily (WT < 150 kg, CrCl > 30 mL/min) *Enoxaparin/Lovenox 30 mg SQ daily (WT < 150 kg, CrCl > 10-29 mL/min) *Enoxaparin/Lovenox 30 mg SQ BID (WT < 150 kg, CrCl > 30 mL/min) AND/OR *Sequential Compression Device (SCD) 5 or more Highest Order ONE of the following medications: *Heparin 5000 units SQ TID (Preferred with Epidurals) *Enoxaparin/Lovenox 40 mg SQ daily (WT < 150 kg, CrCl > 30 mL/min) *Enoxaparin/Lovenox 30 mg SQ daily (WT < 150 kg, CrCl > 10-29 mL/min) *Enoxaparin/Lovenox 30 mg SQ BID (WT < 150 kg, CrCl > 30 mL/min) AND *Sequential Compression Device (SCD) Assessment and Plan Assessment (1) Altered mental status: Code(s): R41.82 - Altered mental status, unspecified Status: Acute Plan Pt is a pleasant 38 y/o F with h/o lupus, post CVA, and antiphospholipid antibody syndrome. 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 Pt reports that earlier this week her son was diagnosed with influeza A. Pt herself developed high fever the day prior to admission with cough. Pt was empirically prescribed antiviral therapy, but this was never started. Her neighbors noted a changed in her mental status on the day of admission between early AM and when they brought her prescription from the pharmacy. In the ER, pt was made a stroke alert d/t confusion and difficulty speak. Case was discussed between the ER physician and the on-call Neurologist, Dr. Ventura. Extensive neuroimaging studies were obtained including CT brain, MRI brain, CTA head, and CTA neck. There were NO acute findings. At the time of my interview and examination, pt was back to her cognitive baseline. Pt answered questions appropriately and was able to readily HODGSON with perhaps some minimal b/l LE weakness. Gait was NOT tested. Pt appeared clinically dehydrated. I spoke with the pt's by phone. He was appropriately concerned. He related that Ms. North is very driven. She will often taken on multiple, difficult, exhausting projects, and seems to have similar neurologic episodes comparable to today's approximately once a year. 1) AMS - symptoms resolved - perhaps d/t viral illness and dehydration - CT brain (11/06) --> WNL - MRI brain (11/06) --> WNL - CTA brain (11/06) --> WNL - CTA neck (11/06) --> WNL - EEG --> pending - continue IVFs - await Neurology consult - anticipate discharge to home in next 1-2 days 2) Viral Illness/possible influenza - tamiflu 75mg BID 3) Lupus - pt follows with Rheumatology, Dr. Pérez - continue plaquenil 4) HTN, essential - continue coreg _ (1) Altered mental status Qualifiers: Altered mental status type: unspecified Coma depth: Coma timing: Qualified Code(s): R41.82 - Altered mental status, unspecified
--- NOTE | 2018-11-06 18:25 | XR ---
EXAM DATE: 11/06/2018 6:16 PM EST AGE/SEX: 38 years / Female INDICATIONS: Fever CLINICAL DATA: This is the patient's initial encounter. Patient reports that signs and symptoms have been present for 1 day and indicates a pain score of 0/10. MEDICAL/SURGICAL HISTORY: Lupus. None. COMPARISON: [facility], CHEST SINGLE AP, 09/08/2017. . FINDINGS: A single AP view of the chest demonstrates the lungs to be symmetrically aerated without evidence of mass, infiltrate or effusion. The cardiomediastinal contours are unremarkable. Osseous structures a re intact. CONCLUSION: The lungs are clear. Electronically signed by: Tai Barahona MD Board Certified Radiologist 11/06/2018 6:23 PM EST
[2018-11-06] MEDS: KCL 20 mEq/D5W/NaCl 0.45% Inj 1,000 ML IV.CONT SCH (18:33)
[2018-11-06] MEDS ORDERED: Enoxaparin Inj 30 MG/0.3 ML Syringe SQ SCH (20:00)
[2018-11-06] MEDS: Senna/Docusate Sodium 8.6/50 MG Tablet PO SCH (21:06)
[2018-11-06] MEDS: Hydroxychloroquine 200 MG Tablet PO SCH (21:07)
[2018-11-06] MEDS ORDERED: Dextrose 25% in Water Inj 10 ML Syringe IV.PUSH ONE (21:29)
--- NOTE | 2018-11-06 21:37 | ECG ---
Date Performed: 11/06/2018 Time Performed: 15:45:32 PTAGE: 38 years EKG: Sinus rhythm POSSIBLE LEFT ATRIAL ENLARGEMENT BORDERLINE ECG No significant change from prior electrocardiogram. PREVIOUS TRACING : 09/08/2017 14.05 DOCTOR: Jose Holland Interpretating Date/Time 11/06/2018 21:36:34
--- NOTE | 2018-11-06 21:54 | P.PNADD ---
Addendum to Inpatient Note Reason for Addendum: Additional Documentation (Attending note: I reviewed the below documentation. - Dwain Yap) Additional information: S: Nadir Called at 21:15, residents responded. This is a 38-year-old female with a past medical history of hypertension, lupus, TIAs, admitted for TIAs. Nadir called due to patient's change in altered mental status. Patient was recently admitted from the emergency room, was dehydrated the day prior due to kid being positive for influenza, patient confirms not drinking much throughout the day. She was given her hypertensive medication, and was subsequently found to have altered mental status and was unresponsive. When residents responded, the patient was alert and oriented to person, place and time after apple juice this was administered via syringe to patient. Patient does confirm having lupus , with recent multiple flares, managed on Plaquenil. She also confirms past history of kidney stones. Currently complains of some lower back pain, last urination was 1 and 1/2 days ago. Patient confirms being dehydrated due to taking care of her child yesterday. She denies any drug use or alcohol use. O: Vitals: Blood pressure: 141/90, T: 97.4, BP: 88, O2 Sat: 100 on room air. General: Middle-aged appearing female, laying in bed, fatigued, speaking slowly when engaged in conversation, drowsy. HEENT. Dry oral mucosa, atraumatic. Neuro: Patient is alert and oriented x3, CN II to XII grossly intact. 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 Unable to raise upper extremities due to weakness. Patient unable to lift head due to weakness. CVS: Regular rate and rhythm, no murmurs rubs or gallops appreciated. Respiratory: Clear to auscultation bilaterally. Abdomen: Soft, nondistended, no tenderness to palpation. Extremities: Warm and well perfused, no calf tenderness. A/P: 38-year-old female, past medical history of lupus, recent contact of influenza, presents with TIA symptoms. Nadir called for change in altered mental status. Influenza negative: Continue on prophylactic Tamiflu. Hold hypertensive medications. POC glucose: 54 at bedside, 25 mg of D50 administered. Bolus IV hydration of D5, half-normal saline, potassium. Creatinine, elevated, possibly due to dehydration. Continue hydration. Hemoglobin: 14.6. Stable. UDS: Negative. UA: Unremarkable. Tylenol for pain control of back pain. Patient mental status improved after administration of D50. Continue Plaquenil for lupus.
[2018-11-06] MEDS: Oseltamivir Phosphate 75 MG Capsule PO SCH (22:03)
[2018-11-07] MEDS: KCL 20 mEq/D5W/NaCl 0.45% Inj 1,000 ML IV.CONT SCH (04:36)
[2018-11-07 07:15] LABS: Baso % (Auto) 0.4 % (0.0-2.0); Eos # (Auto) 0.1 th/mm3 (0.0-0.4); Eos % (Auto) 1.5 % (0.0-4.0); Lymph # (Auto) 0.5 th/mm3 (1.0-4.8); Lymph % (Auto) 10.9 % (9.0-44.0); Mean Corpuscular HGB Conc 33.2 % (32.0-36.0); Mean Corpuscular Hemoglobin 29.6 pg (27.0-34.0); Mean Corpuscular Volume 89.1 fL (80.0-100.0); Mean Platelet Volume 8.7 fL (7.0-11.0); Mono # (Auto) 0.3 th/mm3 (0.0-0.9); Mono % (Auto) 7.4 % (0.0-8.0); Neut # (Auto) 3.6 th/mm3 (1.8-7.7); Neut % (Auto) 79.8 % (16.0-70.0); Platelet Count 214 th/mm3 (150-450); Red Blood Count 4.38 mil/mm3 (4.00-5.30); Red Cell Distribution Width 12.9 % (11.6-17.2); White Blood Count 4.5 th/mm3 (4.0-11.0)
[2018-11-07 07:41] LABS: Carbon Dioxide 21.1 meq/L (21.0-32.0); Potassium 3.8 meq/L (3.5-5.1)
[2018-11-07 10:28] VITALS: RESP 22
[2018-11-07] MEDS ORDERED: Dextrose 50% in Water 50 ML Vial IV.PUSH PRN (10:33)
--- NOTE | 2018-11-07 10:37 | P.CONNEU ---
History of Present Illness Service: Neurology Primary Care Provider: UNKNOWN Chief Complaint: Stroke alert History of Present Illness: 38-year-old female came into the ER for weakness difficulty with speech. Speech improved in the ER she had stat CT, CTAs performed as well as MRI brain scan all of which were unremarkable. She has had mildly elevated blood pressure. She states she is feeling well is ready go home. States she has had episode several in the past where she is speech arrest usually associate with elevated blood pressure. Denies any headache vision loss or focal weakness. She has children who have influenza. 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 She also has underlying lupus and is on chronic immunosuppressive therapy. Denies any history of seizure. Had another episode of reduced responsiveness blood sugar found to be low 50s was given D50 which abated her symptoms. Review of Systems All other systems reviewed negative except as stated in HPI [facility] - History History Provided By: Patient - Medical History Medical History: Medical History (Last Reviewed 11/07/18 @ 08:20 by Jose Orozco) Hypertension Lupus Surgical history unknown TIA (transient ischemic attack) - Tobacco History Second Hand Smoke Exposure: No Smoking Status: Never smoker - Alcohol History How Often Do You Have a Drink Containing Alcohol: Never - Substance Use History Substance History: No History of Abuse - Travel History Recent Travel in the [place] Within the Last 8 Weeks: No Recent Travel Out of the Country Within the Last 8 Weeks: No - Immunization History Tetanus Immunization: Unable to Assess Hx Influenza Vaccine This Season: No Medications and Allergies Active Medications: Active Medications Acetaminophen (Tylenol) 650 mg PO Q4H PRN PRN Reason: Temp > 100.4 Last Admin: 11/06/18 22:02 Dose: 650 mg Al Hydroxide/Mg Hydroxide (Milk Of Magnesia Liq) 30 ml PO Q12H PRN PRN Reason: Mild Constipation Carvedilol (Coreg) 3.125 mg PO BID [facility] Last Admin: 11/06/18 21:07 Dose: 3.125 mg Enoxaparin Sodium (Lovenox Inj) 30 mg SQ Q24H [facility] Last Admin: 11/06/18 21:06 Dose: 30 mg Hydroxychloroquine Sulfate (Plaquenil) 200 mg PO BID [facility] Last Admin: 11/06/18 21:07 Dose: 200 mg Potassium Chloride/Dextrose/Sod Cl (D5w/1/2ns + Kcl 20 Meq Inj) 1,000 mls @ 100 mls/hr IV.CONT .Q10H [facility] Last Admin: 11/07/18 04:36 Dose: 100 mls/hr Ondansetron HCl (Zofran Inj) 4 mg IV.PUSH Q6H PRN PRN Reason: NAUSEA OR VOMITING Last Admin: 11/06/18 23:09 Dose: 4 mg Oseltamivir Phosphate (Tamiflu) 75 mg PO BID [facility] Last Admin: 11/06/18 22:03 Dose: 75 mg Senna/Docusate Sodium (Estephanie-Colace) 1 tab PO BID [facility] Last Admin: 11/06/18 21:06 Dose: 1 tab Sodium Chloride (Ns Flush) 2 ml IV.FLUSH BID [facility] Last Admin: 11/06/18 21:07 Dose: 2 ml Sodium Chloride (Ns Flush) 2 ml IV.FLUSH PRN PRN PRN Reason: FLUSH AFTER USING IV ACCESS Allergies Allergy/AdvReac Type Severity Reaction Status Date / Time cephalexin Allergy Severe Hives Verified 11/06/18 15:19 codeine Allergy Severe Hives Verified 11/06/18 15:19 hydralazine Allergy Severe Hives Verified 11/06/18 15:19 ampicillin Allergy Rash Verified 11/06/18 16:27 Home Medications Medication Instructions Recorded Confirmed Type Unable to Obtain Home Meds 11/06/18 11/06/18 History Exam Vital signs: Vital Signs 11/06/18 15:04 11/06/18 15:19 11/06/18 15:20 Temperature 98.5 F Pulse Rate 79 84 87 Respiratory Rate 18 16 Blood Pressure 159/104 H 152/87 H Pulse Oximetry 99 98 98 11/06/18 15:23 11/06/18 16:17 11/06/18 17:00 Temperature Pulse Rate 84 88 Respiratory Rate 18 Blood Pressure 167/100 H 146/90 H Pulse Oximetry 98 100 11/06/18 18:00 11/06/18 19:04 11/06/18 19:05 Temperature Pulse Rate 96 H 106 H Respiratory Rate 20 18 Blood Pressure 144/98 H 143/87 H Pulse Oximetry 100 100 100 11/06/18 19:19 11/06/18 20:00 11/06/18 20:18 Temperature 98.5 F 97.5 F L Pulse Rate 99 H 82 Respiratory Rate 16 22 Blood Pressure 152/102 H Pulse Oximetry 99 100 100 11/06/18 21:30 11/07/18 00:00 11/07/18 04:00 Temperature 98.3 F Pulse Rate 93 H 83 Respiratory Rate 18 Blood Pressure 121/73 Pulse Oximetry 100 98 11/07/18 04:57 11/07/18 08:00 Temperature 98.2 F 98.2 F Pulse Rate 76 74 Respiratory Rate 18 22 Blood Pressure 138/85 144/86 H Pulse Oximetry 99 97 Intake & Output 11/06/18 11/07/18 11/07/18 18:59 06:59 18:59 Intake Total 1562 / 1562 1060 / 1060 Output Total 450 / 450 Balance 1562 / 1562 610 / 610 Weight 59.9 kg Intake: IV 1562 / 1562 1000 / 1000 D5W/1/2NS + KCL 20 mEq Inj 1, 1000 / 1000 000 ML @ 100 mls/hr IV.CONT . Q10H [facility] Rx#:[id number] NS Inj 1,000 ML @ 70 mls/hr IV. 200 / 200 CONT .[id number] [facility] Rx#:[id number] Zovirax Inj 600 MG In NS Inj 112 / 112 100 ML @ 112 mls/hr IV.SIG ONCE ONE Rx#:[id number] NS Inj 1,000 ML @ 1000 mls/hr 1000 / 1000 IV.SIG BOLUS [facility] Rx#:[id number] Vancomycin Inj 1,000 MG In NS 250 / 250 Inj 250 ML @ 250 mls/hr IV.SIG ONCE ONE Rx#:[id number] Oral 60 / 60 Output: Urine 450 / 450 Other: # Voids 3 # Urine Diapers 2 Date of Last Bowel Movement 11/05/18 # Bowel Movements 0 Narrative: GENERAL: in NAD, SKIN: Warm and dry. HEAD: Atraumatic. Normocephalic. EYES: Pupils equal and round. ENT: No nasal bleeding or discharge. NECK: Trachea midline. No JVD. CARDIOVASCULAR: Regular rate and rhythm. RESPIRATORY: No accessory muscle use. GASTROINTESTINAL: Abdomen soft, non-tender, nondistended. MUSCULOSKELETAL: Extremities without clubbing, cyanosis, or edema. NEUROLOGICAL: Awake and alert. No aphasia, fluent articulate, No facial asymmetry, OU 3-2mm, eomi, VFF, No drift, Motor grossly within normal limits. Five out of 5 muscle strength in the arms and legs. Tone normal in all 4 limbs, Sensory normal in all 4 extremities to pin, msr 2++, no clonus, planterflexor, PSYCHIATRIC: Appropriate mood and affect; insight and judgment normal. - Constitutional no acute distress - Routine HEENT Exam Head: Present: normocephalic Eye: Present: EOMI Results - Labs CBC & Chem 7: 11/07/18 06:14 11/07/18 06:14 Labs: Laboratory Results - last 24 hr 11/06/18 11/06/18 11/06/18 15:07 15:07 15:07 WBC 6.7 RBC 4.92 Hgb 14.4 POC Hgb (Calc) 14.6 Hct 42.9 POC Hct 43.0 MCV 87.2 MCH 29.3 MCHC 33.6 RDW 13.3 Plt Count 244 MPV 8.9 Neut % (Auto) 85.9 H Lymph % (Auto) 9.8 [place] % (Auto) 3.8 Eos % (Auto) 0.1 Baso % (Auto) 0.4 Neut # (Auto) 5.8 Lymph # (Auto) 0.7 L [place] # (Auto) 0.3 Eos # (Auto) 0.0 Baso # (Auto) 0.0 WBC Differential . Differential Comment Auto diff final PT 11.9 H INR 1.2 APTT 42.9 H Fibrinogen 236 POC Sodium 137 Sodium POC Potassium 4.3 Potassium POC Chloride 104 Chloride Carbon Dioxide Anion Gap POC BUN 25 H BUN Creatinine POC Creatinine 1.5 H Estimated GFR POC Glucose 65 L Random Glucose Lactic Acid Calcium Total Bilirubin AST ALT Alkaline Phosphatase Total Creatine Kinase 36 Troponin I Less than 0.02 L Total Protein Albumin Urine Color Urine Clarity Urine pH Ur Specific Coy Urine Protein Urine Glucose (UA) Urine Ketones Urine Occult Blood Urine Nitrate Urine Bilirubin Urine Urobilinogen Ur Leukocyte Esterase Urine WBC Urine Mucus Micro UA Comment Ur Microscopic Review Urine Culture Comments Urine Opiates Screen Ur Barbiturates Screen Ur Amphetamines Screen U Benzodiazepines Scrn Urine Cocaine Screen U Cannabinoids Screen Blood Type Antibody Screen 11/06/18 11/06/18 11/06/18 15:07 15:07 16:15 WBC RBC Hgb POC Hgb (Calc) Hct POC Hct MCV MCH MCHC RDW Plt Count MPV Neut % (Auto) Lymph % (Auto) [place] % (Auto) Eos % (Auto) Baso % (Auto) Neut # (Auto) Lymph # (Auto) [place] # (Auto) Eos # (Auto) Baso # (Auto) WBC Differential Differential Comment PT INR APTT Fibrinogen POC Sodium Sodium POC Potassium Potassium POC Chloride Chloride Carbon Dioxide Anion Gap POC BUN BUN Creatinine POC Creatinine Estimated GFR POC Glucose 71 Random Glucose Lactic Acid Calcium Total Bilirubin AST ALT Alkaline Phosphatase Total Creatine Kinase Troponin I Total Protein Albumin Urine Color Urine Clarity Urine pH Ur Specific [place] Urine Protein Urine Glucose (UA) Urine Ketones Urine Occult Blood Urine Nitrate Urine Bilirubin Urine Urobilinogen Ur Leukocyte Esterase Urine WBC Urine Mucus Micro UA Comment Ur Microscopic Review Urine Culture Comments Urine Opiates Screen Neg Ur Barbiturates Screen Neg Ur Amphetamines Screen Neg U Benzodiazepines Scrn Neg Urine Cocaine Screen Neg U Cannabinoids Screen Neg Blood Type A Negative Antibody Screen Negative 11/06/18 11/06/18 11/06/18 16:15 16:25 17:05 WBC RBC Hgb POC Hgb (Calc) Hct POC Hct MCV MCH MCHC RDW Plt Count MPV Neut % (Auto) Lymph % (Auto) [place] % (Auto) Eos % (Auto) Baso % (Auto) Neut # (Auto) Lymph # (Auto) [place] # (Auto) Eos # (Auto) Baso # (Auto) WBC Differential Differential Comment PT INR APTT Fibrinogen POC Sodium Sodium 137 POC Potassium Potassium 4.4 POC Chloride Chloride 107 Carbon Dioxide 17.9 L Anion Gap 12 POC BUN BUN 25 H Creatinine 1.33 H POC Creatinine Estimated GFR 45 L POC Glucose Random Glucose 54 L Lactic Acid 1.1 Calcium 7.6 L Total Bilirubin 1.5 H AST 19 ALT 15 Alkaline Phosphatase 55 Total Creatine Kinase Troponin I Total Protein 7.0 Albumin 3.2 L Urine Color Yellow Urine Clarity Clear Urine pH 5.0 Ur Specific Coy 1.013 Urine Protein Negative Urine Glucose (UA) Negative Urine Ketones 20 Urine Occult Blood Negative Urine Nitrate Negative Urine Bilirubin Negative Urine Urobilinogen Less than 2 Ur Leukocyte Esterase Negative Urine WBC Less than 1 Urine Mucus Few H Micro UA Comment Cath-culture not ind Ur Microscopic Review Not Reportable Urine Culture Comments Cath-cult not ind Urine Opiates Screen Ur Barbiturates Screen Ur Amphetamines Screen U Benzodiazepines Scrn Urine Cocaine Screen U Cannabinoids Screen Blood Type Antibody Screen 11/06/18 11/06/18 11/06/18 21:16 21:36 21:57 WBC RBC Hgb POC Hgb (Calc) Hct POC Hct MCV MCH MCHC RDW Plt Count MPV Neut % (Auto) Lymph % (Auto) [place] % (Auto) Eos % (Auto) Baso % (Auto) Neut # (Auto) Lymph # (Auto) [place] # (Auto) Eos # (Auto) Baso # (Auto) WBC Differential Differential Comment PT INR APTT Fibrinogen POC Sodium Sodium POC Potassium Potassium POC Chloride Chloride Carbon Dioxide Anion Gap POC BUN BUN Creatinine POC Creatinine Estimated GFR POC Glucose 54 L 60 L 173 H Random Glucose Lactic Acid Calcium Total Bilirubin AST ALT Alkaline Phosphatase Total Creatine Kinase Troponin I Total Protein Albumin Urine Color Urine Clarity Urine pH Ur Specific Coy Urine Protein Urine Glucose (UA) Urine Ketones Urine Occult Blood Urine Nitrate Urine Bilirubin Urine Urobilinogen Ur Leukocyte Esterase Urine WBC Urine Mucus Micro UA Comment Ur Microscopic Review Urine Culture Comments Urine Opiates Screen Ur Barbiturates Screen Ur Amphetamines Screen U Benzodiazepines Scrn Urine Cocaine Screen U Cannabinoids Screen Blood Type Antibody Screen 11/07/18 11/07/18 06:14 06:14 WBC 4.5 RBC 4.38 Hgb 13.0 POC Hgb (Calc) Hct 39.0 POC Hct MCV 89.1 MCH 29.6 MCHC 33.2 RDW 12.9 Plt Count 214 MPV 8.7 Neut % (Auto) 79.8 H Lymph % (Auto) 10.9 [place] % (Auto) 7.4 Eos % (Auto) 1.5 Baso % (Auto) 0.4 Neut # (Auto) 3.6 Lymph # (Auto) 0.5 L [place] # (Auto) 0.3 Eos # (Auto) 0.1 Baso # (Auto) 0.0 WBC Differential . Differential Comment Auto diff final PT INR APTT Fibrinogen POC Sodium Sodium 139 POC Potassium Potassium 3.8 POC Chloride Chloride 109 H Carbon Dioxide 21.1 Anion Gap 9 POC BUN BUN 18 Creatinine 1.38 H POC Creatinine Estimated GFR 43 L POC Glucose Random Glucose 81 Lactic Acid Calcium 8.0 L Total Bilirubin AST ALT Alkaline Phosphatase Total Creatine Kinase Troponin I Total Protein Albumin Urine Color Urine Clarity Urine pH Ur Specific Coy Urine Protein Urine Glucose (UA) Urine Ketones Urine Occult Blood Urine Nitrate Urine Bilirubin Urine Urobilinogen Ur Leukocyte Esterase Urine WBC Urine Mucus Micro UA Comment Ur Microscopic Review Urine Culture Comments Urine Opiates Screen Ur Barbiturates Screen Ur Amphetamines Screen U Benzodiazepines Scrn Urine Cocaine Screen U Cannabinoids Screen Blood Type Antibody Screen - Imaging Impressions Chest X-Ray 11/06/18 00:00 CONCLUSION: The lungs are clear. Head CT 11/06/18 15:07 CONCLUSION: 1. No acute intracranial abnormality Report was called by [place] to Jeb. Head CTA 11/06/18 15:07 CONCLUSION: 1. No large vessel stenosis or aneurysm. Report was called by [place] to Audrey. Neck CTA 11/06/18 15:07 CONCLUSION: 1. Negative CTA Carotid. Report was called by [place] to [facility]. Head MRI 11/06/18 16:07 CONCLUSION: 1. Unremarkable MRI of the brain. 2. No acute infarction. Review/Management - Diagnosis (1) Hypertension Code(s): I10 - Essential (primary) hypertension Status: Acute Current Visit : Yes (2) Lupus Code(s): M32.9 - Systemic lupus erythematosus, unspecified Status: Acute Current Visit: Yes (3) Altered mental status Code(s): R41.82 - Altered mental status, unspecified Status: Acute Current Visit: Yes - Review/Management Plan: Recurrent stereotypical episodes of speech arrest associated hypertension. May been associated dehydration poor p.o. intake and stressors Workup completely negative. No fever neuro exam nonfocal MRI brain negative. CTA brain carotids negative Recommendation Blood pressure control. May need a as needed medication Creatinine mildly elevated. Follow-up on this may be related to lupus versus mild chronic hypertension EEG Increase hydration and p.o. intake If unremarkable can be discharged home from neurologic standpoint follow-up in the outpatient setting. Discussed medical (3) Altered mental status Qualifiers: Altered mental status type: unspecified Qualified Code(s): R41.82 - Altered mental status, unspecified
[2018-11-07] MEDS: Senna/Docusate Sodium 8.6/50 MG Tablet PO SCH (10:55)
[2018-11-07] MEDS: Oseltamivir Phosphate 75 MG Capsule PO SCH (10:56)
[2018-11-07] MEDS: Hydroxychloroquine 200 MG Tablet PO SCH (10:56)
--- NOTE | 2018-11-07 10:59 | P.PNADD ---
Addendum to Inpatient Note Reason for Addendum: Additional Documentation (Lakeisha has chronic kidney disease stage 3 due to Lupus and HTN: usually follows with Dr. Mai. Nadia Zhang ( primary outpatient). jacinta)
--- NOTE | 2018-11-07 11:57 | P.PNIM ---
Subjective Interval history: Pt feeling much better. Pt able to ambulate independently to the this AM. Pt able to ambulate in the hallway with Physical therapy. Physical Exam Vital signs: Last Vital Signs Temp 98.2 F 11/07/18 08:00 Pulse 74 11/07/18 08:00 Resp 22 11/07/18 08:00 BP 144/86 H 11/07/18 08:00 Pulse Ox 97 11/07/18 08:00 Narrative: GENERAL: This is a well-nourished, well-developed patient, in no apparent distress. CARDIOVASCULAR: Regular rate and rhythm without murmurs, gallops, or rubs. RESPIRATORY: Clear to auscultation. Breath sounds equal bilaterally. No wheezes , rales, or rhonchi. GASTROINTESTINAL: Abdomen soft, non-tender, nondistended. Normal active bowel sounds MUSCULOSKELETAL: Extremities without clubbing, cyanosis, or edema. NEURO: Alert & Oriented x4 to person, place, time, situation. Moves all ext x4 Results Labs CBC & Chem 7: 11/07/18 06:14 11/07/18 06:14 Assessment and Plan Assessment (1) Altered mental status: Code(s): R41.82 - Altered mental status, unspecified Status: Acute Plan Pt is a pleasant 38 y/o F with h/o lupus, post CVA, and antiphospholipid antibody syndrome. 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 Pt reports that earlier this week her son was diagnosed with influeza A. Pt herself developed high fever the day prior to admission with cough. Pt was empirically prescribed antiviral therapy, but this was never started. Her neighbors noted a changed in her mental status on the day of admission between early AM and when they brought her prescription from the pharmacy. In the ER, pt was made a stroke alert d/t confusion and difficulty speak. Case was discussed between the ER physician and the on-call Neurologist, Dr. Ventura. Extensive neuroimaging studies were obtained including CT brain, MRI brain, CTA head, and CTA neck. There were NO acute findings. At the time of my interview and examination, pt was back to her cognitive baseline. Pt answered questions appropriately and was able to readily [place] with perhaps some minimal b/l LE weakness. Gait was NOT tested. Pt appeared clinically dehydrated. I spoke with the pt's by phone. He was appropriately concerned. He related that Ms. North is very driven. She will often taken on multiple, difficult, exhausting projects, and seems to have similar neurologic episodes comparable to today's approximately once a year. 1) AMS - symptoms resolved - perhaps d/t viral illness and dehydration - CT brain (11/06) --> WNL - MRI brain (11/06) --> WNL - CTA brain (11/06) --> WNL - CTA neck (11/06) --> WNL - EEG --> pending - Appreciate Neurology consult. - Case d/w Dr. Ventura at length. - if EEG negative, then will d/c to home this evening - f/u with Dr. Ventura outpt in 3-4 weeks 2) Viral Illness/possible influenza - tamiflu 75mg BID 3) Lupus - pt follows with Rheumatology, Dr. Pérez - continue plaquenil 4) HTN, essential - continue coreg Progress Note: Quality VTE Deep Vein Thrombosis/Pulmonary Embolism Present on Admission: No _ (1) Altered mental status Qualifiers: Altered mental status type: unspecified Coma depth: Coma timing: Qualified Code(s): R41.82 - Altered mental status, unspecified
[2018-11-07 18:37] VITALS: BP 168/106; PULSE 76; TEMP 98; O2SAT 100
--- NOTE | 2018-11-07 20:37 | MG ---
cc: Mango Ventura MD ELECTROENCEPHALOGRAM RECORD NUMBER: [id number] DESCRIPTION: Well-formed alpha activity of 8-9 Hz, 20-50 microvolts. Low-amplitude beta in the frontal channels. Good anterior to posterior gradient. Frequent eye movement and blink artifact noted. Single-lead EKG showing sinus rhythm. Good EEG variability and reactivity. Good driving with photic stimulation. INTERPRETATION: Normal awake electroencephalogram. Clinical correlation. MD SONYA Chu/alana , 08:19 PM , 08:24 PM
== END 2018-11-07 19:12 | disposition home or self-care (01) | DRG 69 ==
LOC: NEPE 15:02 → NEDA 18:00 → N06 19:59
PROVIDERS: ADMIT Hospitalist; ATTEND Hospitalist
CPT/HCPCS: 70450; 70496; 70498; 70551; 71010; 71045; 80048; 80053; 80307; 81001; 82435; 82550; 82565; 82947; 82948; 82962; 83605; 84132; 84295; 84484; 84520; 85025; 85384; 85610; 85730; 86850; 86900; 86901; 87040; 87275; 87276; 87804; 90761; 90765; 90775; 93005; 95819; 96361; 96365; 96375; 97161; 99291; J0133; J1650; J2405; J3370; J3480; J7030; J7050; P9612; Q9967